=== PATIENT | female | born 1995 | race Caucasian/White ===

== ENCOUNTER 2017-12-24 13:28 | Emergency (ER) | payer OTHER, MEDICAID ==
[~2017-12-24] VITALS: Ht 162.6 cm; Wt 63.5 kg
[~2017-12-24 13:28] MED LIST: CIPROFLOXIN HC2.5 M1 OPHTHALMIC; FLAGYL500 MG PO; HYDROCODONE-AP1 EAC6 PO; KEFLEX500 MG PO; LORATIDINE 10 M10 M1 PO; MACROBID 100 M100 M1 PO; NEOMYC-POLYM-GR10 ML OP; NOHOMEMEDICATIONS; TRINATE TABLET1 TAB; ZOFRAN ODT4 MG PO
[2017-12-24 13:58] LABS: URINE BILIRUBIN NEGATIVE (Negative); URINE BLOOD NEGATIVE (Negative); URINE CLARITY CLEAR; URINE COLOR YELLOW; URINE GLUCOSE-RANDOM NEGATIVE (Negative); URINE KETONES NEGATIVE (Negative); URINE NITRITE-REFLEX NEGATIVE (Negative); URINE PROTEIN NEGATIVE (Negative); URINE SPECIFIC GRAVITY 1.015 (1.005-1.030); URINE UROBILINOGEN 0.2 E.U./dl (0.2-1.0)
[2017-12-24 13:58] LABS: HEMATOCRIT 37.9 % (37.0-47.0); HEMOGLOBIN 12.7 gm/dL (12.0-15.0); MCH 25.9 pg (26.0-34.0); MCHC 33.6 g/dL (28.0-37.0); MCV 77.1 fL (80.0-100.0); NUCLEATED RBCS 0 /100WBC; PLATELET COUNT* 193 thou/uL (150-400); RBC 4.91 mil/uL (4.20-5.00); RDW-CV 14.6 % (10.5-14.5); WBC 8.5 thou/uL (4.0-11.0)
[2017-12-24 13:59] LABS: URINE LEUKOCYTES-REFLEX 3+ (Negative)
[2017-12-24 14:13] LABS: BACTERIA-REFLEX 1-9 Few /HPF (None Seen); CASTS None Seen /LPF (None Seen); CRYSTALS None Seen /LPF (None Seen); MUCUS None Seen strn/LPF (None Seen); SQUAMOUS 4-10 Moderate /LPF (0-3); URINE RBC 0-2 Rare /HPF (0-2)
[2017-12-24 14:15] LABS: CALCIUM 9.4 mg/dL (8.5-10.1); CREATININE 0.7 mg/dL (0.6-1.3); POTASSIUM 3.4 mmol/L (3.5-5.1)
[2017-12-24 14:20] LABS: ALBUMIN 4.5 g/dL (3.4-5.0); TOTAL BILIRUBIN 0.7 mg/dL (<0.1-1.0); TOTAL PROTEIN 8.8 g/dL (6.4-8.2)
[2017-12-24 14:38] LABS: ABSOLUTE EOSINOPHILS 0.1 thou/uL (0.0-0.7); ABSOLUTE LYMPHOCYTES 0.6 thou/uL (0.8-5.3); ABSOLUTE MONOCYTES 0.3 thou/uL (0.0-1.2); ABSOLUTE NEUTROPHILS 7.5 thou/uL (1.6-8.1); PLATELET ESTIMATE ADEQUATE
--- NOTE | 2017-12-24 15:52 | EKG ---
[place] [address] ELECTROCARDIOGRAM REPORT Name: ALEX HARTLEYEILEEN Room: [facility]#: [id number] Admission: 12/24/17 Attend Phys: Discharge: Date of : [birth year] Report #: [id number] THIS REPORT FOR: //name// [facility] ED Test Date: 2017-12-24 Test Time: 13:37:45 Pat Name: MARA HARTLEY Department: Room: Gender: F Registered Radiographer: JUANIS : 1995 Requested By: Rocío Jefferson Order Number: [id number] MD: Andrade Lock Measurements Intervals [place] Rate: 128 P: 94 FL: 181 QRS: 77 QRSD: 69 T: -28 QT: 355 QTc: 518 Interpretive Statements Sinus tachycardia Borderline T abnormalities, lateral leads Prolonged QT interval Compared to ECG 11/02/2015 16:01:59 T-wave abnormality now present Prolonged QT interval now present Sinus rhythm no longer present Electronically Signed On 12-24-2017 15:51:53 CDT by Andrade Lock [email or web address] <ELECTRONICALLY SIGNED> By: Andrade Lock MD, [facility] 12/24/17 1551 [id number] [id number] Andrade Lock MD, [facility] /EPI
[2017-12-24 16:03] VITALS: BP 95/40
== END 2017-12-24 16:04 | disposition home or self-care (01) ==
LOC: M.ERS 13:28
PROVIDERS: Nurse Practitioner Family
DX: N39.0 Urinary tract infection, site not specified (principal); J03.90 Acute tonsillitis, unspecified; R51 Headache; R42 Dizziness and giddiness; F41.0 Panic disorder [episodic paroxysmal anxiety]

== ENCOUNTER 2017-12-24 19:31 | Emergency (ER) | payer OTHER, MEDICAID ==
[~2017-12-24] VITALS: Ht 162.6 cm; Wt 63.5 kg
[2017-12-24 20:52] VITALS: BP 114/34
== END 2017-12-24 20:52 | disposition home or self-care (01) ==
LOC: M.ERS 19:31
DX: J03.90 Acute tonsillitis, unspecified (principal); F41.0 Panic disorder [episodic paroxysmal anxiety]

== ENCOUNTER 2018-02-27 20:25 | Emergency (ER) | payer OTHER, MEDICAID ==
[~2018-02-27] VITALS: Ht 162.6 cm; Wt 67.6 kg
[2018-02-27] MEDS ORDERED: ZPAK PO (20:39)
[2018-02-27] MEDS ORDERED: PREDNISONE 10 M10 MG PO (23:08)
[2018-02-27] MEDS ORDERED: NABUMETONE 750750 M1 PO (23:08)
[2018-02-28 00:02] VITALS: BP 105/46
== END 2018-02-28 00:04 | disposition home or self-care (01) ==
LOC: M.ERS 20:25
DX: J03.90 Acute tonsillitis, unspecified (principal); B27.90 Infectious mononucleosis, unspecified without complication

== ENCOUNTER 2018-03-02 04:44 | Emergency (ER) | payer OTHER, MEDICAID ==
[~2018-03-02] VITALS: Ht 162.6 cm; Wt 67.6 kg
[~2018-03-02 04:44] MED LIST changes: +NABUMETONE 750750 M1 PO; +PREDNISONE 10 M10 MG PO; +ZPAK PO
[2018-03-02] MEDS ORDERED: AUGMENTIN 875-1 EACH PO (05:17)
[2018-03-02] MEDS ORDERED: HYDROCODONE-ACE15 ML PO (05:20)
[2018-03-02 06:19] LABS: ABSOLUTE BASOPHILS 0.1 thou/uL (0.0-0.2); ABSOLUTE LYMPHOCYTES 2.7 thou/uL (0.8-5.3); ABSOLUTE MONOCYTES 0.9 thou/uL (0.0-1.2); ABSOLUTE NEUTROPHILS 11.9 thou/uL (1.6-8.1); BASOPHILS 0.5 %; EOSINOPHILS 0.1 %; HEMATOCRIT 35.8 % (37.0-47.0); HEMOGLOBIN 11.8 gm/dL (12.0-15.0); LYMPHOCYTES 17.2 %; MCH 25.8 pg (26.0-34.0); MCV 78.4 fL (80.0-100.0); MONOCYTES 5.6 %; MPV 9.2 fl. (7.2-11.1); NUCLEATED RBCS 0 /100WBC; PLATELET COUNT* 291 thou/uL (150-400); POLYS 76.6 %; RBC 4.57 mil/uL (4.20-5.00); RDW-CV 14.4 % (10.5-14.5); WBC 15.5 thou/uL (4.0-11.0)
[2018-03-02 06:23] LABS: CALCIUM 9.3 mg/dL (8.5-10.1); CREATININE 0.8 mg/dL (0.6-1.3); POTASSIUM 3.2 mmol/L (3.5-5.1)
[2018-03-02 06:27] LABS: ALBUMIN 3.8 g/dL (3.4-5.0); TOTAL BILIRUBIN 0.2 mg/dL (<0.1-1.0); TOTAL PROTEIN 8.2 g/dL (6.4-8.2)
[2018-03-02 08:04] VITALS: BP 127/68
== END 2018-03-02 08:04 | disposition short-term general hospital (02) ==
LOC: M.ERS 04:44
PROVIDERS: Emergency Medicine
DX: J03.90 Acute tonsillitis, unspecified (principal); B27.90 Infectious mononucleosis, unspecified without complication; F41.9 Anxiety disorder, unspecified

== ENCOUNTER 2019-05-25 19:32 | Emergency (ER) | payer OTHER ==
[~2019-05-25] VITALS: Ht 162.6 cm; Wt 59.0 kg
[~2019-05-25 19:32] MED LIST changes: +AUGMENTIN 875-1 EACH PO; +HYDROCODONE-ACE15 ML PO
[2019-05-25 20:01] LABS: URINE BILIRUBIN NEGATIVE (Negative); URINE BLOOD NEGATIVE (Negative); URINE CLARITY CLEAR; URINE COLOR YELLOW; URINE GLUCOSE-RANDOM NEGATIVE (Negative); URINE KETONES NEGATIVE (Negative); URINE LEUKOCYTES-REFLEX 1+ (Negative); URINE NITRITE-REFLEX NEGATIVE (Negative); URINE PROTEIN NEGATIVE (Negative); URINE UROBILINOGEN 0.2 E.U./dl (0.2-1.0)
[2019-05-25 20:34] LABS: BACTERIA-REFLEX None Seen /HPF (None Seen); CASTS None Seen /LPF (None Seen); CRYSTALS None Seen /LPF (None Seen); SQUAMOUS 4-10 Moderate /LPF (0-3); URINE RBC None Seen /HPF (0-2); URINE WBC-REFLEX 0-5 Rare /HPF (0-5)
[2019-05-25 20:43] LABS: ABSOLUTE BASOPHILS 0.1 thou/uL (0.0-0.2); ABSOLUTE EOSINOPHILS 0.1 thou/uL (0.0-0.7); ABSOLUTE LYMPHOCYTES 2.4 thou/uL (0.8-5.3); ABSOLUTE MONOCYTES 0.3 thou/uL (0.0-1.2); ABSOLUTE NEUTROPHILS 4.3 thou/uL (1.6-8.1); BASOPHILS 0.7 %; EOSINOPHILS 1.1 %; HEMATOCRIT 33.1 % (37.0-47.0); HEMOGLOBIN 11.1 gm/dL (12.0-15.0); LYMPHOCYTES 33.2 %; MCH 23.9 pg (26.0-34.0); MCHC 33.5 g/dL (28.0-37.0); MCV 71.5 fL (80.0-100.0); MONOCYTES 4.5 %; MPV 8.7 fl. (7.2-11.1); NUCLEATED RBCS 0 /100WBC; PLATELET COUNT* 266 thou/uL (150-400); POLYS 60.5 %; RBC 4.63 mil/uL (4.20-5.00); RDW-CV 14.9 % (10.5-14.5); WBC 7.2 thou/uL (4.0-11.0)
[2019-05-25 20:51] LABS: CALCIUM 9.6 mg/dL (8.5-10.1); CREATININE 0.7 mg/dL (0.6-1.3); POTASSIUM 3.2 mmol/L (3.5-5.1)
[2019-05-25 21:02] LABS: ALBUMIN 4.3 g/dL (3.4-5.0); TOTAL BILIRUBIN 0.2 mg/dL (<0.1-1.0); TOTAL PROTEIN 8.2 g/dL (6.4-8.2)
[2019-05-25 21:23] VITALS: BP 132/49
[2019-05-25 21:42] LABS: HYPOCHROMASIA 1+; MICROCYTES 1+; PLATELET ESTIMATE ADEQUATE
--- NOTE | 2019-05-26 08:50 | EKG ---
[place] [address] ELECTROCARDIOGRAM REPORT Name: MARA KRAMER Room: [facility]#: [id number] Admission: 05/25/19 Attend Phys: Discharge: 05/25/19 Date of : [birth year] Report #: [id number] THIS REPORT FOR: //name// [facility] ED Test Date: 2019-05-25 Test Time: 20:02:20 Pat Name: MARA KRAMER Department: Room: Gender: F Office Machine Mechanic: AMITA : 1995 Requested By: Leslie Sheets Order Number: [id number] MD: Andrade Lock Measurements Intervals [place] Rate: 111 P: 70 MS: 196 QRS: 71 QRSD: 95 T: -8 QT: 327 QTc: 445 Interpretive Statements Sinus tachycardia RSR' in V1 or V2, right VCD or RVH Borderline T abnormalities, inferior leads Compared to ECG 12/24/2017 13:37:45 RSR' in V1 or V2 now present Prolonged QT interval no longer present T-wave abnormality still present Electronically Signed On 05-26-2019 8:50:27 [employer] CARE AIDE by Andrade Lock [email or web address] <ELECTRONICALLY SIGNED> By: Andrade Lock MD, FACC 05/26/19 0850 01 01 Andrade Lock MD, FAC /EPI
== END 2019-05-25 21:24 | disposition home or self-care (01) ==
LOC: M.ERS 19:32
PROVIDERS: Nurse Practitioner Family
DX: R42 Dizziness and giddiness (principal); F41.0 Panic disorder [episodic paroxysmal anxiety]

== ENCOUNTER 2020-09-04 19:59 | Emergency (ER) | payer OTHER ==
[~2020-09-04] VITALS: Ht 157.5 cm; Wt 56.7 kg
[2020-09-04] MEDS ORDERED: LEXAPRO 10 MG T10 M2 PO (20:13)
[2020-09-04 20:34] LABS: ABSOLUTE LYMPHOCYTES 0.6 thou/uL (0.8-5.3); ABSOLUTE MONOCYTES 0.2 thou/uL (0.0-1.2); BASOPHILS 0.5 %; EOSINOPHILS 0.1 %; HEMATOCRIT 38.5 % (37.0-47.0); HEMOGLOBIN 12.9 gm/dL (12.0-15.0); LYMPHOCYTES 20.8 %; MCH 25.2 pg (26.0-34.0); MCHC 33.5 g/dL (28.0-37.0); MCV 75.4 fL (80.0-100.0); MONOCYTES 8.7 %; MPV 8.8 fl. (7.2-11.1); NUCLEATED RBCS 0 /100WBC; PLATELET COUNT* 151 thou/uL (150-400); POLYS 69.9 %; RBC 5.11 mil/uL (4.20-5.00); RDW-CV 15.5 % (10.5-14.5); WBC 2.8 thou/uL (4.0-11.0)
[2020-09-04 20:43] LABS: CALCIUM 10.6 mg/dL (8.5-10.1); POTASSIUM 3.1 mmol/L (3.5-5.1)
[2020-09-04 20:47] LABS: ALBUMIN 4.7 g/dL (3.4-5.0); TOTAL BILIRUBIN 0.7 mg/dL (<0.1-1.0); TOTAL PROTEIN 9.2 g/dL (6.4-8.2)
[2020-09-04 22:41] LABS: URINE BILIRUBIN NEGATIVE (Negative); URINE BLOOD NEGATIVE (Negative); URINE CLARITY CLEAR; URINE COLOR YELLOW; URINE GLUCOSE-RANDOM NEGATIVE (Negative); URINE KETONES NEGATIVE (Negative); URINE LEUKOCYTES-REFLEX NEGATIVE (Negative); URINE NITRITE-REFLEX NEGATIVE (Negative); URINE PROTEIN TRACE (Negative); URINE SPECIFIC GRAVITY 1.015 (1.005-1.030)
[2020-09-04 22:47] LABS: AMP/METHAMP Negative (Negative); BARBITURATES Negative (Negative); BENZODIAZEPINES Negative (Negative); COCAINE Negative (Negative); METHADONE Negative (Negative); OPIATES Negative (Negative); PCP Negative (Negative); THC Negative (Negative)
[2020-09-04] MEDS ORDERED: AUGMENTIN 875-1 EACH PO (23:04)
[2020-09-04 23:14] VITALS: BP 124/70
== END 2020-09-04 23:15 | disposition home or self-care (01) ==
LOC: M.ERS 19:59
PROVIDERS: Emergency Medicine
DX: R50.9 Fever, unspecified (principal); K08.89 Other specified disorders of teeth and supporting structures; Z79.899 Other long term (current) drug therapy